=== PATIENT | male | born 1990 | race Caucasian/White ===

== ENCOUNTER 2017-02-14 12:56 | Emergency (ER) | payer OTHER | END 2017-02-14 18:10 | LOC: CED 12:56 | DX: F32.9 Major depressive disorder, single episode, unspecified (principal); R45.851 Suicidal ideations | CPT/HCPCS: 36415; 96374; 99283; 99284 ==

== ENCOUNTER 2017-02-14 19:27 | Inpatient (IN) | payer OTHER ==
--- NOTE | ~2017-02-14 | PA ---
Unit #: [id number] #: [id number] Patient: CHIARA VILLALOBOS [id number] [facility] [address] [place] [address] [id number] MR#: [id number] NAME: CHIARA VILLALOBOS. ROOM: P258 Age: 26 Sex: M Admission Date: 02/14/2017 : 1990 Date of Assessment: 02/15/2017 Attending Physician: Roberth Porter M.D. Admitting Physician: Roberth Porter M.D. Primary Care Physician: Lefty Bowser M.D. PSYCHIATRIC ASSESSMENT DATE OF SERVICE 02/15/2017. INFORMANTS The patient, reliable; [place] office, reliable; and [facility], reliable. CHIEF COMPLAINT Thoughts of suicide. HISTORY OF PRESENT ILLNESS Chiara is a 26-year-old man, who reports that his male partner and he had been arguing over "his animals" for some time. He began to have increasing thoughts of suicide and hopelessness and had contacted his mother who recommended that he go to the emergency room. He was equivocal about his ability to contract for safety and [facility] PAST PSYCHIATRIC HISTORY No previous psychiatric treatment on the inpatient or outpatient basis. FAMILY PSYCHIATRIC HISTORY There is a family history of an unspecified mental illness and anxiety. SOCIAL HISTORY The patient denied a history of physical, sexual, or emotional abuse or neglect. 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 He has ongoing relationship problems with his partner. PAST MEDICAL HISTORY No chronic medical problems. MEDICATIONS None. ALLERGIES No known medication allergies. SUBSTANCE ABUSE HISTORY None reported. MENTAL STATUS EXAMINATION Chiara presented as a neatly dressed and groomed man, who appeared his Unit #: [id number] #: [id number] Patient: CHIARA VILLALOBOS stated age. He stood 5 feet 8 inches tall and weighed 150 pounds. Vital signs; temperature 98.0, pulse 65, respirations 16, and blood pressure 129/73. His speech was spontaneous, clearly articulated, and easily understood with good [place] language skills and a good vocabulary. Musculoskeletal examination was calm. His mood was mildly irritable with a congruent affect. He was alert and fully oriented. His memory and concentration were intact. His thought processes were logical with no active psychosis. He denied suicidal ideation, intent, or plan. Insight and judgment were intact. Fund of knowledge and abstraction were intact. ASSETS AND LIABILITIES The patient is youthful and knows local resources. Liabilities include conflict with partner. ADMITTING DIAGNOSES AXIS I: Adjustment disorder with depressed mood, F43.21. AXIS II: No diagnosis. AXIS III: None acute. AXIS IV: AXIS V: PSYCHIATRIC PLAN The patient was admitted overnight and placed on suicide precautions. This morning, he states that he feels completely safe in the outpatient environment and would like referral to outpatient care. He is willing to seek medication through his primary care physician and get connected with a therapist in his home community. At this point, he is being released after giving a reliable contract for safety. Dictated by... Roberth Porter M.D. WOOD/taylor TD: 02/15/2017 13:14 JOB #: [id number] PSYCHIATRIC ASSESSMENT Page 1 of 1 X Roberth Porter MD X PSYCHIATRIC ASSESSMENT
--- NOTE | ~2017-02-14 | DS ---
Unit #: [id number] #: [id number] Patient: CHIARA VILLALOBOS [id number] [facility] [address] [place] [address] [id number] MR#: [id number] NAME: CHIARA VILLALOBOS. ROOM: P258 Age: 26 Sex: M Admission Date: 02/14/2017 : 1990 Discharge Date: 02/15/2017 Attending Physician: Roberth Porter M.D. Primary Care Physician: Lefty Bowser M.D. DISCHARGE SUMMARY REASON FOR ADMISSION Chiara is a 26-year-old man who is having increasing arguments with his partner over their living situation which led to increasing suicidal thoughts and some obsessive suicidal thinking. He was seen in the emergency room where he was unable to give a reliable contract for safety and [facility] DIAGNOSTIC STUDIES LABORATORY DATA: CMP and CBC within normal limits. Urine drug screen was negative. HOSPITAL COURSE Chiara was admitted and placed on suicide precautions. The morning of my initial assessment the patient stated he felt safe at home and wished to pursue outpatient treatment. He was equivocal about the need for psychiatric medications and stated that he had addressed this with his primary care doctor and had decided to hold off. We discussed a therapy plan involving referral to a therapist with possible be re-referral to his primary care doctor for medication management if this becomes necessary, and the patient felt that this was an appropriate plan for him. He was discharged in stable condition. DISCHARGE DIAGNOSES AXIS I: Adjustment disorder with depressed mood, F43.21 AXIS II: No diagnosis. AXIS III: None. DISCHARGE INSTRUCTIONS Follow up with therapist of choice and primary care physician. DISCHARGE MEDICATIONS None. CONDITION ON DISCHARGE Improved. PROGNOSIS Good. DIET AND ACTIVITY Ad carmita. Unit #: [id number] #: [id number] Patient: CHIARA VILLALOBOS Dictated by... Roberth Porter M.D. MRH/bzg TD: 02/16/2017 07:29 JOB #: [id number] DISCHARGE SUMMARY Page 1 of 1 X Roberth Porter MD X DISCHARGE SUMMARY
--- NOTE | ~2017-02-14 | HP ---
Unit #: [id number] #: [id number] Patient: CHIARA VILLALOBOS [id number] [place] [address] [id number] MR#: [id number] NAME: CHIARA VILLALOBOS. ROOM: P258 Age: 26 Sex: M Admission Date: 02/14/2017 : 1990 Attending Physician: Roberth Porter M.D. Admitting Physician: Roberth Porter M.D. Primary Care Physician: Lefty Bowser M.D. HISTORY AND PHYSICAL HISTORY OF PRESENT ILLNESS Chiara is a 26 year old, admitted to [facility] with depression and verbalizing wanting to hurt animals and himself. PAST MEDICAL HISTORY Nothing significant. PAST SURGICAL HISTORY Nothing reported. ALLERGIES No known drug allergies. SOCIAL HISTORY He does not smoke, drinks alcohol on occasion, denies illicit drug use. FAMILY HISTORY Medically noncontributory. REVIEW OF SYSTEMS CONSTITUTIONAL: No fever or chills. HEENT: Denies any sore throat, ear pain or runny nose. CARDIOVASCULAR: Denies chest pain, irregular heart rhythm or palpitations. CHEST: Denies shortness of breath or cough. No hemoptysis. GASTROINTESTINAL: Denies nausea, vomiting, diarrhea or chronic constipation. ENDOCRINE: Denies history of increased thirst or urination. No recent significant weight loss or gain. GENITOURINARY: Denies dysuria, frequency, or hematuria. SKIN: Denies any rashes. HEMATOLOGIC: Denies history of increased bleeding or bruising. MUSCULOSKELETAL: Denies any hot, swollen joints. No generalized muscle pain. NEUROLOGIC: Denies problems with vision or speech. No frequent, severe headaches. No numbness, tingling or weakness in any extremities. Denies loss of bladder or bowel control. CURRENT MEDICATIONS 1. Milk of magnesia p.r.n. 2. Maalox p.r.n. 3. Tylenol p.r.n. 4. Desyrel 50 mg q.h.s. p.r.n. Unit #: [id number] #: [id number] Patient: CHIARA VILLALOBOS PHYSICAL EXAMINATION GENERAL: Alert, well-nourished, no apparent distress. VITAL SIGNS: Blood pressure 120/70, heart rate 72, respirations 16, and temperature 98.6. WEIGHT: 150 pounds. HEIGHT: 5 feet 8 inches. SKIN: Warm and dry without rash or lesion. HEENT: Normocephalic. TMs not viewed. Oral and nasal passages clear. Conjunctivae clear. PERRLA. EOMs intact. NECK: Supple without lymphadenopathy or thyromegaly. HEART: Regular rate and rhythm without murmur. LUNGS: Clear. ABDOMEN: Soft, nontender. : Not done. EXTREMITIES: No evidence of cyanosis, clubbing or edema. Moves all without focal deficit. NEUROLOGICAL: Grossly within normal limits. Cranial Nerves: II: Visual castillo are intact. III, IV AND : Extraocular movements are intact. Pupils are equal, round and reactive to light. V: Facial sensation is grossly normal. VII: Facial movements and expression are normal. VIII: Auditory acuity grossly intact. IX, X: Uvula is midline. Phonation is normal. XI: Patient shrugs shoulders and turns head normally. XII: Tongue protrudes in the midline. Sensory and Motor Function: Sensory and motor sensation is grossly normal. Motor: moves all extremities well. Coordination: Gait is normal. Deep Tendon Reflexes: Intact. IMPRESSION Psychiatric admission. RECOMMENDATIONS Psychiatric, per psychiatrist. MEDICAL I see no contraindications to participating in facility's activities. MEDICAL PROGNOSIS Good. MEDICAL CONDITION Stable. Dictated by... Margaret JeongALorne-Kentrell. for Mars Saxena/gentry TD: 02/16/2017 06:11 JOB #: [id number] Unit #: [id number] #: [id number] Patient: CHIARA VILLALOBOS HISTORY AND PHYSICAL Page 1 of 1 X Kelly Vega HISTORY AND PHYSICAL
[2017-02-15 09:39] LABS: BASOPHIL# 0.1 X10e3 (0-0.3); BASOPHIL% 0.8 % (0-2.5); EOSINOPHIL# 0.4 X10e3 (0-0.7); EOSINOPHIL% 4.3 % (0.0-7.0); HEMATOCRIT 44.3 % (38.0-50.0); LYMPHOCYTE# 3.5 X10e3 (1.0-3.5); LYMPHOCYTE% 42.5 % (17.0-45.0); MEAN CELL VOLUME 86.4 FL (83-96); MEAN CORPUSCULAR HEMOGLOBIN 29.3 PG (28-34); MEAN CORPUSCULAR HGB CONC 33.9 g/dL (30-36); MEAN PLATELET VOLUME 8.9 FL (6.5-11.5); MONOCYTE# 0.6 X10e3 (0-1.0); MONOCYTE% 6.9 % (3.0-12.0); NEUTROPHIL# 3.8 X10e3 (1.5-7.1); NEUTROPHIL% 45.5 % (40-75); PLATELET COUNT 301 X10e3 (140-420); RED BLOOD COUNT 5.13 X10e (3.90-5.60); RED CELL DISTRIBUTION WIDTH 13.2 % (11.0-15.5); WHITE BLOOD COUNT 8.3 X10e3 (4.0-10.5)
[2017-02-15 09:45] LABS: DIFF IND NO
[2017-02-15 09:55] LABS: BUN/CREATININE RATIO 17.5; CALCIUM SERUM 10.1 mg/dL (8.4-10.2); CREATININE SERUM 0.8 mg/dL (0.6-1.4); GLOM FILT RATE Estimated 125.1 mL/min (>60); POTASSIUM 4.2 mmol/L (3.5-5.1); PROTEIN TOTAL SERUM 7.5 g/dL (6.0-8.3)
[2017-02-15 10:04] LABS: AMPHETAMINE NEG (NEG); BARBITURATES NEG (NEG); BENZODIAZEPINES NEG (NEG); COCAINE NEG (NEG); MARIJUANA NEG (NEG); OPIATES NEG (NEG); TRICYCLIC ANTIDEPRESSANTS NEG (NEG); U METHADONE NEG (NEG)
== END 2017-02-15 13:00 | disposition home or self-care (01) | DRG 881 ==
LOC: P2L 19:27
PROVIDERS: Psychiatry & Neurology Psychiatry
DX: F43.21 Adjustment disorder with depressed mood (principal); R45.851 Suicidal ideations
CPT/HCPCS: 80053; 80307; 85025